=== PATIENT | female | born 1970 | race Native Hawaiian/Other Pacific Islander ===

== ENCOUNTER 2017-01-31 09:58 | Outpatient (CLI) | payer MEDICAID ==
--- NOTE | 2017-01-31 12:04 | History and Physical Report ---
History of Present Illness Date of examination: 01/31/17 Chief complaint: adenopathy
--- NOTE | 2017-01-31 12:06 | Procedure Note ---
Date of procedure: 01/31/17 Pre-op diagnosis: axillary adenopathy Post-op diagnosis: same Procedure: rt. axillary node bx Findings: n/a Anesthesia: local Surgeon: LEONILA WILLIAM Estimated blood loss: none Pathology: list (rt lymph node) Specimen disposition: to lab Condition: stable Disposition: same day
--- NOTE | 2017-01-31 12:11 | Ultrasound Report ---
Ultrasound guided right axillary node biopsy: Patient with axillary adenopathy. Imaging of the right axilla demonstrated a dominant lymph node measuring approximately 12 x 34 mm in size with abnormal contour and no obvious hilum. The skin was cleansed and 1% lidocaine used for local anesthesia. An 18-gauge Achieve spring-loaded device was used to take 4 samples. 2 samples were placed into formalin and 2 samples and saline. A marker was placed. There were no patient complications encountered. The patient was given followup instructions and discharged.
[2017-02-03 10:05] LABS: CYTOMETRY FIRST MARKER SCANNED INTO MED REC; FLOW CYTOMETRY >16 SCANNED INTO MED REC
== END 2017-01-31 09:59 | disposition home or self-care (01) ==
LOC: SPVWC 09:58
PROVIDERS: ATTEND Internal Medicine Hematology & Oncology
DX: R59.1 Generalized enlarged lymph nodes (principal)
CPT/HCPCS: 38525; 88305; A4648; 88184; 88185

== ENCOUNTER 2017-02-11 07:55 | Outpatient (CLI) | payer MEDICAID ==
--- NOTE | 2017-02-11 13:16 | Cat Scan Report ---
CT CHEST, ABDOMEN AND PELVIS WITH CONTRAST: 02/11/17 07:55:00 CLINICAL: Bilateral axillary lymphadenopathy and status post recent ultrasound biopsy of a right axillary lymph node with benign pathology. COMPARISON: 01/31/17 ultrasound right axillary lymph node biopsy TECHNIQUE: Volumetric acquisition and 1.25 millimeter scan reconstructions after the uneventful intravenous injection of 100 cc of Omnipaque 300. Consent was obtained prior to the administration of the contrast. Oral contrast was also given. FINDINGS: Chest: The lungs are clear. No pulmonary nodule or mass. Normal aorta, heart and pulmonary arteries. Normal esophagus and trachea. No mediastinal or hilar lymphadenopathy.A right axillary lymph node has central fat and measures 4.2 x 3.1 x 1.8 cm with 10 mm thick cortex and contains a biopsy clip. It is the largest lymph node in the right axilla and the largest left axillary lymph node measures 2.6 cm. Abdomen: Normal liver and bile ducts status post cholecystectomy. Stomach, duodenum, pancreas and spleen. The spleen measures 10.7 cm in length. Normal adrenal glands and kidneys. Normal aorta and inferior vena cava. No retroperitoneal or intraperitoneal lymphadenopathy.No ascites.Normal small bowel. Normal ascending, transverse and descending colon. Normal appendix. Pelvis: Normal urinary bladder and rectum.Normal uterus and right ovary. A 2.7 cm round hyperdense cyst versus mass of the left ovary. It measures 57 Hounsfield units in density. The ovary is not enlarged. No pelvic lymphadenopathy. Bone windows demonstrate no suspicious bone lesion. IMPRESSION:1. Mild bilateral benign axillary lymph node enlargement. 2. Normal abdomen status post cholecystectomy. 3. A 2.7 cm hyperdense cyst versus mass of the left ovary. Recommend further evaluation with transabdominal and transvaginal pelvic ultrasound. 4. No abdominal or pelvic lymphadenopathy.
== END 2017-02-11 07:56 | disposition home or self-care (01) ==
LOC: SPVIMAG 07:55
PROVIDERS: ATTEND Internal Medicine Hematology & Oncology
DX: R59.9 Enlarged lymph nodes, unspecified (principal); I10 Essential (primary) hypertension; F32.9 Major depressive disorder, single episode, unspecified; Z90.49 Acquired absence of other specified parts of digestive tract
CPT/HCPCS: 71260; 74177; Q9967

== ENCOUNTER 2022-03-15 09:22 | Emergency (ER) | payer SELFPAY ==
--- NOTE | 2022-03-15 10:15 | Event Note ---
ED Screening Note Date of service: 03/15/22 Time: 10:10 ED Screening Note: This initial assessment/diagnostic orders/clinical plan/treatment(s) is/are subject to change based on patients health status, clinical progression and re- assessment by fellow clinical providers in the ED. Further treatment and workup at subsequent clinical providers discretion. Patient/guardian urged not to elope from the ED as their condition may be serious if not clinically assessed and managed. Vag bleed and clots x 4 days. > 1 pad/hr today. dizzy upon standing. Appears slightly pale. to main. Initial orders include: My Active Orders 03/15/22 10:08 Type and Screen Stat Saline lock .ONCE Basic Metabolic Panel Stat Complete Blood Count Auto Diff Stat HCG Qualitative, Urine Stat Urinalysis Complete Stat
[2022-03-15 11:35] LABS: BUN/Creatinine Ratio 19; Blood Urea Nitrogen 17 mg/dL (7-17); Calcium 8.2 mg/dL (8.4-10.2); Hemolysis Index 7
[2022-03-15 11:49] LABS: Bilirubin,Urine NEG (Negative); Blood,Urine LG (Negative); Color,Urine Amber (Yellow)
[2022-03-15 11:51] LABS: Bacteria,Urine 1+ /HPF (Negative); Hyaline Casts,Urine 62 /LPF; Mucus,Urine 3+ /HPF
[2022-03-15 11:52] LABS: Basophils # (Auto) 0.1 K/mm3 (0.0-0.1); Basophils % (Auto) 0.8 % (0.0-1.8); Eosinophils # (Auto) 0.1 K/mm3 (0.0-0.4); Eosinophils % (Auto) 1.2 % (0.0-4.3); Hematocrit 27.4 % (30.3-42.9); Hemoglobin 8.9 gm/dl (10.1-14.3); Lymphocytes # (Auto) 3.1 K/mm3 (1.2-5.4); Lymphocytes % (Auto) 25.6 % (13.4-35.0); Mean Corpuscular HGB Conc 33 % (30-34); Mean Corpuscular Volume 90 fl (79-97); Monocytes # (Auto) 0.6 K/mm3 (0.0-0.8); Platelet Count 246 K/mm3 (140-440); Red Blood Count 3.06 M/mm3 (3.65-5.03); Red Cell Distribution Width 14.1 % (13.2-15.2)
[2022-03-15 11:52] LABS: HCG Qualitative,Urine Negative (Negative); RBC,Urine > 182.0 /HPF (0.0-6.0)
[2022-03-15] MEDS ORDERED: KETOROLAC 60 MG/2 ML INJ IVP ONE (15:37)
--- NOTE | 2022-03-15 15:39 | Emergency Department Report ---
ED General Adult HPI - General Chief complaint: Vaginal Bleeding Stated complaint: BLOOD CLOTS x4DAYS Time Seen by Provider: 03/15/22 15:13 Source: patient Mode of arrival: Ambulatory Limitations: No Limitations - History of Present Illness Initial comments: The patient presents to the emergency department with a chief complaint of vaginal bleeding that started 4 days ago. Patient expresses that she is passing a large amount of clots and has felt weak over the last 4 days. States she is going through several pads daily. Patient denies any jorge abdominal pain. Denies chest pain, shortness breath, headache -: Sudden Severity scale (0 -10): 0 Consistency: constant Improves with: none Worsens with: none Associated Symptoms: denies other symptoms Treatments Prior to Arrival: none - Related Data Previous Rx's Medication Instructions Recorded Last Taken Type Ketorolac [Toradol] 10 mg PO Q6H PRN #20 tablet 03/15/22 Unknown Rx Allergies Allergy/AdvReac Type Severity Reaction Status Date / Time morphine Allergy Unknown Verified 03/15/22 10:09 ED Review of Systems ROS: Stated complaint: BLOOD CLOTS x4DAYS Other details as noted in HPI Comment: All other systems reviewed and negative Constitutional: denies: chills, fever Eyes: denies: eye pain, eye discharge, vision change ENT: denies: ear pain, throat pain Respiratory: denies: cough, shortness of breath, wheezing Cardiovascular: denies: chest pain, palpitations Endocrine: no symptoms reported Gastrointestinal: denies: abdominal pain, nausea, diarrhea Genitourinary: denies: urgency, dysuria, discharge Musculoskeletal: denies: back pain, joint swelling, arthralgia Skin: denies: rash, lesions Neurological: denies: headache, weakness, paresthesias Psychiatric: denies: anxiety, depression Hematological/Lymphatic: denies: easy bleeding, easy bruising ED Past Medical Hx - Past Medical History Hx Hypertension: Yes Hx Arthritis: Yes - Medications Home Medications: Home Medications Medication Instructions Recorded Confirmed Last Taken Type Ketorolac [Toradol] 10 mg PO Q6H PRN #20 tablet 03/15/22 Unknown Rx ED Physical Exam - General Limitations: No Limitations General appearance: alert, in no apparent distress - Head Head exam: Present: atraumatic, normocephalic - Eye Eye exam: Present: PERRL, EOMI, other - ENT ENT exam: Present: mucous membranes moist - Neck Neck exam: Present: normal inspection - Respiratory Respiratory exam: Present: normal lung sounds bilaterally. Absent: respiratory distress - Cardiovascular Cardiovascular Exam: Present: regular rate, normal rhythm. Absent: systolic murmur, diastolic murmur, rubs, gallop - GI/Abdominal GI/Abdominal exam: Present: soft, normal bowel sounds. Absent: distended, tenderness - Extremities Exam Extremities exam: Present: normal inspection - Back Exam Back exam: Present: normal inspection - Neurological Exam Neurological exam: Present: alert, oriented X3 - Psychiatric Psychiatric exam: Present: normal affect, normal mood - Skin Skin exam: Present: warm, dry, intact, normal color. Absent: rash ED Course Vital Signs 03/15/22 03/15/22 03/15/22 10:04 15:16 16:59 Temperature 99.1 F Pulse Rate 95 H 80 84 Respiratory 18 18 18 Rate Blood Pressure 132/92 168/87 148/84 [Left] O2 Sat by Pulse 98 99 100 Oximetry ED Medical Decision Making - Lab Data Result diagrams: 03/15/22 10:32 03/15/22 10:32 Lab Results 03/15/22 03/15/22 03/15/22 Range/Units 10:32 10:32 10:32 WBC 12.3 H (4.5-11.0) K/mm3 RBC 3.06 L (3.65-5.03) M/mm3 Hgb 8.9 L (10.1-14.3) gm/dl Hct 27.4 L (30.3-42.9) % MCV 90 (79-97) fl MCH 29 (28-32) pg MCHC 33 (30-34) % RDW 14.1 (13.2-15.2) % Plt Count 246 (140-440) K/mm3 Lymph % (Auto) 25.6 (13.4-35.0) % Green % (Auto) 5.0 (0.0-7.3) % Eos % (Auto) 1.2 (0.0-4.3) % Baso % (Auto) 0.8 (0.0-1.8) % Lymph # (Auto) 3.1 (1.2-5.4) K/mm3 Green # (Auto) 0.6 (0.0-0.8) K/mm3 Eos # (Auto) 0.1 (0.0-0.4) K/mm3 Baso # (Auto) 0.1 (0.0-0.1) K/mm3 Seg Neutrophils % 67.4 (40.0-70.0) % Seg Neutrophils # 8.3 H (1.8-7.7) K/mm3 Sodium 137 (137-145) mmol/L Potassium 4.0 (3.6-5.0) mmol/L Chloride 101.7 (98-107) mmol/L Carbon Dioxide 22 (22-30) mmol/L Anion Gap 17 mmol/L BUN 17 (7-17) mg/dL Creatinine 0.9 (0.6-1.2) mg/dL Estimated GFR > 60 ml/min BUN/Creatinine Ratio 19 % Glucose 127 H (65-100) mg/dL Calcium 8.2 L (8.4-10.2) mg/dL Urine Color (Yellow) Urine Turbidity (Clear) Urine pH (5.0-7.0) Ur Specific Murphy (1.003-1.030) Urine Protein (Negative) mg/dL Urine Glucose (UA) (Negative) mg/dL Urine Ketones (Negative) mg/dL Urine Blood (Negative) Urine Nitrite (Negative) Urine Bilirubin (Negative) Urine Urobilinogen (<2.0) mg/dL Ur Leukocyte Esterase (Negative) Urine WBC (Auto) (0.0-6.0) /HPF Urine RBC (Auto) (0.0-6.0) /HPF U Epithel Cells (Auto) (0-13.0) /HPF Urine Bacteria (Auto) (Negative) /HPF Hyaline Casts /LPF Urine Mucus /HPF Urine HCG, Qual (Negative) Blood Type A POSITIVE Antibody Screen Negative 03/15/22 Range/Units 10:50 WBC (4.5-11.0) K/mm3 RBC (3.65-5.03) M/mm3 Hgb (10.1-14.3) gm/dl Hct (30.3-42.9) % MCV (79-97) fl MCH (28-32) pg MCHC (30-34) % RDW (13.2-15.2) % Plt Count (140-440) K/mm3 Lymph % (Auto) (13.4-35.0) % Green % (Auto) (0.0-7.3) % Eos % (Auto) (0.0-4.3) % Baso % (Auto) (0.0-1.8) % Lymph # (Auto) (1.2-5.4) K/mm3 Green # (Auto) (0.0-0.8) K/mm3 Eos # (Auto) (0.0-0.4) K/mm3 Baso # (Auto) (0.0-0.1) K/mm3 Seg Neutrophils % (40.0-70.0) % Seg Neutrophils # (1.8-7.7) K/mm3 Sodium (137-145) mmol/L Potassium (3.6-5.0) mmol/L Chloride (98-107) mmol/L Carbon Dioxide (22-30) mmol/L Anion Gap mmol/L BUN (7-17) mg/dL Creatinine (0.6-1.2) mg/dL Estimated GFR ml/min BUN/Creatinine Ratio % Glucose (65-100) mg/dL Calcium (8.4-10.2) mg/dL Urine Color Khushi (Yellow) Urine Turbidity Cloudy (Clear) Urine pH 5.0 (5.0-7.0) Ur Specific Murphy 1.026 (1.003-1.030) Urine Protein 100 mg/dl (Negative) mg/dL Urine Glucose (UA) Neg (Negative) mg/dL Urine Ketones Tr (Negative) mg/dL Urine Blood Lg (Negative) Urine Nitrite Neg (Negative) Urine Bilirubin Neg (Negative) Urine Urobilinogen 2.0 (<2.0) mg/dL Ur Leukocyte Esterase Tr (Negative) Urine WBC (Auto) 68.0 H (0.0-6.0) /HPF Urine RBC (Auto) > 182.0 (0.0-6.0) /HPF U Epithel Cells (Auto) 13.0 (0-13.0) /HPF Urine Bacteria (Auto) 1+ (Negative) /HPF Hyaline Casts 62 /LPF Urine Mucus 3+ /HPF Urine HCG, Qual Negative (Negative) Blood Type Antibody Screen - Radiology Data Radiology results: report reviewed - Medical Decision Making Results discussed with patient Critical care attestation.: If time is entered above; I have spent that time in minutes in the direct care of this critically ill patient, excluding procedure time. ED Disposition Clinical Impression: DUB (dysfunctional uterine bleeding), Uterine fibroid, ASB (asymptomatic bacteriuria) Disposition: 01 HOME / SELF CARE / HOMELESS Is pt being admited?: No Does the pt Need Aspirin: No Condition: Stable Instructions: Dysfunctional Uterine Bleeding, Abnormal Uterine Bleeding, Uterine Fibroids Additional Instructions: return if worse Referrals: SHAINA GU MD [Primary Care Provider] - 3-5 Days [facility] [Provider Group] - 3-5 Days Time of Disposition: 17:22
[2022-03-15 17:00] VITALS: BP 148/84
--- NOTE | 2022-03-15 17:11 | Ultrasound Report ---
ULTRASOUND PELVIS INDICATION / CLINICAL INFORMATION: Dysmenorrhagia. TECHNIQUE: Transabdominal and Transvaginal. Duplex Color Doppler used: Yes. COMPARISON: None available FINDINGS: UTERUS: The uterus measures 10.6 cm in length. The endometrial stripe measures 11 mm. There is a 5 cm fibroid in the posterior aspect of the uterus. RIGHT ADNEXA: The right ovary is not visualized. No adnexal masses seen. There is limited evaluation of the adnexa due to bowel gas and body habitus. LEFT ADNEXA: The left ovary is not visualized. No adnexal masses seen. There is limited evaluation of the adnexa due to bowel gas and body habitus. URINARY BLADDER: No significant abnormality. FREE FLUID: None. ADDITIONAL FINDINGS: None. IMPRESSION: 1. There is a 5 cm fibroid in the body of uterus. 2. The endometrial stripe is thickened measuring 11 mm. The patient indicated in her history that she has regular menstrual cycles.. The thickness of the endometrium is likely related to phase of the me nstrual cycle. Signer Name: Odin Jeffers MD Signed: 03/15/2022 5:07 PM Workstation Name: [id number]
== END 2022-03-15 18:45 | disposition home or self-care (01) ==
LOC: ED 09:22
DX: N93.8 Other specified abnormal uterine and vaginal bleeding (principal); D25.9 Leiomyoma of uterus, unspecified; R82.71 Bacteriuria; I10 Essential (primary) hypertension; M19.90 Unspecified osteoarthritis, unspecified site; Z88.5 Allergy status to narcotic agent; Z79.899 Other long term (current) drug therapy
CPT/HCPCS: 36415; 76830; 76856; 80048; 81001; 81025; 85025; 86850; 86900; 86901; 87086; 99284; J1885